=== PATIENT | female | born 1965 | race Caucasian/White ===

== ENCOUNTER 2019-01-22 08:51 | Inpatient (IN) | payer SELFPAY ==
[2019-01-22] MEDS ORDERED: Ondansetron PF 4 MG/2 ML Vial ONE ×2 (09:19→10:07)
[2019-01-22 09:30] LABS: #Basophils 0.1 thou/uL (0.0-0.2); #Eosinphils 0.1 thou/uL (0.0-0.7); #Lymphocytes 1.6 thou/uL (1.20-3.40); #Monocytes 0.7 thou/uL (0.11-0.59); #Neutrophils 4.2 thou/uL (1.40-6.50); %Eosinophils 2.2 % (0.0-10.0); %Lymphocytes 24.1 % (21.0-51.0); %Monocytes 9.8 % (0.0-10.0); %Neutrophils 62.8 % (42.0-75.0); Hemoglobin 13.4 g/dL (12.0-16.0); Mean Corpuscular HGB CONC 33.8 g/dL (32.0-36.0); Mean Corpuscular Hemoglobin 30.7 pg (27.0-31.0); Mean Corpuscular Volume 90.9 fL (78.0-98.0); Mean Platelet Volume 7.4 fL (7.4-10.4); Platelet Count 370 thou/uL (130-400); RBC Distribution Width 12.1 % (11.5-14.5); Red Blood Cell (RBC) Count 4.36 mill/uL (4.20-5.40); White Blood Cell (WBC) Count 6.7 thou/uL (4.8-10.8)
[2019-01-22 09:43] LABS: ALT (SGPT) 15 U/L (8-55); AST (SGOT) 17 U/L (5-34); Albumin 4.7 g/dL (3.5-5.0); Alkaline Phosphatase 95 U/L (40-110); Anion Gap 17 mmol/L (10-20); BUN (Urea Nitrogen) 14 mg/dL (9.8-20.1); Bilirubin, Total 1.5 mg/dL (0.2-1.2); Calc. Creatinine Clearance 0 mL/min (70-130); Calcium 9.1 mg/dL (7.8-10.44); Carbon Dioxide 21 mmol/L (22-29); Chloride 103 mmol/L (98-107); Estimated GFR-MDRD 82; Globulin 3.2 g/dL (2.4-3.5); Glucose 107 mg/dL (70-105); Lipase 19 U/L (8-78); Potassium 3.7 mmol/L (3.5-5.1); Protein, Total 7.9 g/dL (6.0-8.3); Sodium 137 mmol/L (136-145)
[2019-01-22] MEDS ORDERED: Morphine 4 MG/ML VIAL ONE ×2 (10:20→12:14)
--- NOTE | 2019-01-22 10:35 | CT ---
CT ABDOMEN AND PELVIS WITH IV CONTRAST: INDICATIONS: Abdominal pain with nausea and vomiting. COMPARISON: No comparison studies. TECHNIQUE: Axial tomograms obtained with multiplanar reconstruction. FINDINGS: Images through the lung bases reveal a cystic mass at the right cardiophrenic angle, in the medial ri ght lung base, measuring approximately 6 cm in AP dimension. Findings may represent a pericardial cys t. The lung bills are otherwise clear. The liver, spleen and pancreas appear unremarkable. There is a small pancreatic tail, apparently moreno enital. There is no history of surgical excision. The adrenal glands are normal. Both kidneys show numerous (too numerous to count) small, low density lesions throughout both kidneys . These lesions are predominantly subcentimeter. Some of the larger ones measure up to 1 cm. They pre sumably represent numerous small renal cysts. The coronal images show evidence of a 2 mm calculus in the lower pole collecting structures of the right kidney. No hydronephrosis. No evidence of urinary t ract calculus. The urinary bladder is minimally distended and unremarkable as visualized. The ureters are of normal caliber. The small bowel loops are of normal caliber. The colon is unremarkable with prominent stool in the ri ght and transverse colon. The aorta is of normal caliber. No mass or adenopathy. No free fluid. The gallbladder is mildly distended. There is no pericholecystic edema. Gallstones may not be apparen t on CT. IMPRESSION: 1. The kidneys have an abnormal appearance with numerous small low density lesions seen throughout yodit th kidneys, most likely representing numerous small renal cysts. Several of these lesions are somewha t heterogeneous and most are too small to adequately characterize. Recommend follow-up CT abdomen wit h and without contrast in six months to assess stability. 2. Coronal images show evidence of a tiny nonobstructing calculus in the lower pole collecting struct ures of the right kidney. 3. Mildly distended gallbladder of uncertain significance. Recommend clinical correlation. POS: ALEX
[2019-01-22 10:57] LABS: Bacteria/HPF None Seen HPF (None Seen); Bilirubin Negative (Negative); Blood, Urine Negative (Negative); Clarity Clear (Clear); Glucose, Urine (Dipstick) Normal (Negative); Leukocyte Negative Leu/uL (Negative); Nitrite Negative (Negative); Protein, Urine (Dipstick) 30 mg/dL (Neg-Trace); RBC/HPF 0-3 HPF (0-3); Urobilinogen Normal mg/dL (Less than 2); WBC/HPF 0-3 HPF (0-3)
--- NOTE | 2019-01-22 12:13 | ULT ---
GALLBLADDER ULTRASOUND: INDICATIONS: Right upper quadrant pain. FINDINGS: The gallbladder is mildly distended. No evidence of gallstones. The common duct is upper normal in ca liber at 6 mm. The pancreatic duct is also mildly prominent. The visualized pancreas is otherwise un remarkable. The liver is enlarged, measuring up to 20 cm. No focal liver mass. The right kidney is imaged and measures 12 cm in length. There is evidence of mild right hydronephros is with prominence of the upper collecting structures. IMPRESSION: 1. The gallbladder is mildly distended however there is no evidence of gallstones. 2. There is mild prominence of the extrahepatic bile duct and the pancreatic duct. Correlation made t o CT performed today which shows no evidence of pancreatic mass lesion. CT scan also showed mild full ness of the renal collecting structures with numerous low density cystic lesions in both kidneys. Follow-up CT abdomen is recommended, as noted on the CT abdomen and pelvis study, to confirm stabilit y of the urinary tract findings. POS: ALEX
[2019-01-22] MEDS ORDERED: Ondansetron PF 4 MG/2 ML Vial IVP PRN (16:14)
[2019-01-22] MEDS ORDERED: Ondansetron ODT 4 MG TAB SL PRN (16:14)
[2019-01-22] MEDS ORDERED: Acetaminophen 325 MG TAB PO PRN (16:14)
[2019-01-22] MEDS ORDERED: Lactated Ringer's 1,000 ML IV SCH (16:15)
[2019-01-22 16:24] VITALS: BMI 28.1
[2019-01-22] MEDS ORDERED: Morphine 2 MG/ML SYRINGE SLOW IVP PRN (17:30)
[2019-01-22] MEDS ORDERED: Magnesium Citrate 300 ML BOT PO SCH (18:00)
--- NOTE | 2019-01-22 18:25 | PDOC.HHP ---
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 On Sunday and Sunday she started feeling nauseous and then had severe RUQ pain and started to vomit. Her pain was intermittent, nothing made it better, and it was exacerbated by eating. Her pain was nonradiating. She ate egg noodle soup on Sunday and thought she had the flu or food poisoning so she stayed at home to see if it would resolve. However her abdominal pain and vomiting started to progressively get worst so she came to the ER. The patient stated the vomit was the same color as her food and then it turned bilious in color. She denied any diarrhea. She denies history of travel. She reports feeling hot and cold and had diffuse muscle aches. The patient states she hasn' t had a bowel movement since because she can't keep anything down. ED Course: The patient had US abdomen that showed distended gallbladder with no stones but mild prominence of extrahepatic bile duct and pancreatic duct. CT abdomen showed renal cysts and nonobstructing calculus in right kidney. Hospitalist ROS - Review of Systems Eyes: denies: pain, vision change ENT: denies: other (had ear discharge from vomiting) Respiratory: denies: other (had runny nose for few days) Cardiovascular: denies: chest pain, palpitations Gastrointestinal: reports: nausea, vomiting, abdominal pain, constipation Musculoskeletal: denies: neck pain, shoulder pain Neurological: denies: weakness, numbness - Medication Medications: Active Medications Generic Name Dose Route Start Last Admin Trade Name Sánchez PRN Reason Stop Dose Admin Lactated Ringer's 1,000 mls @ 125 mls/hr 01/22/19 16:15 01/22/19 16:59 Lactated Ringer's IV 01/22/19 23:59 1,000 mls .Q8H JEANETTE Administration Magnesium Citrate 300 ml 01/22/19 18:00 01/22/19 18:00 Citrate Of Magnesia 300 Ml Bot PO 01/22/19 20:00 300 ml NOW JEANETTE Administration Hospitalist History - Past Medical History Cardiac: reports: HTN - Past Surgical History Past Surgical History: reports: Appendectomy. denies: Tonsillectomy Other Surgical History: Titanium vashti left arm Knee surgery right knee Hysterectomy - Family History Family History: reports: hypertension - Social History Smoking Status: Former smoker (smoked for one year during her divorce) Alcohol: reports: Occassional Living Situation: Alone Activity level: independent ambulation - Exam General Appearance: NAD, awake alert General - other findings: appears very restless and fidgety Eye: PERRL, anicteric sclera ENT: normocephalic atraumatic, no oropharyngeal lesions Neck: supple, symmetric, no JVD Heart: RRR, no murmur, no gallops, no rubs Respiratory: CTAB, no wheezes, no rales, no ronchi Gastrointestinal: soft. negative: no guarding, no rigidity Gastrointestinal - other findings: RUQ tenderness Extremities: negative: no cyanosis, no clubbing, no edema Skin: normal turgor, no rashes. negative: no lesions Neurological: cranial nerve grossly intact, normal sensation to touch, no focal deficits, no new deficit Musculoskeletal: normal tone, normal strength, no muscle wasting Psychiatric: normal affect, normal behavior, A&O x 3 Hospitalist Results - Labs Result Diagrams: 01/22/19 09:16 01/22/19 09:16 Lab results: WBC 6.7 thou/uL (4.8-10.8) 01/22/19 09:16 Hgb 13.4 g/dL (12.0-16.0) 01/22/19 09:16 Hct 39.6 % (36.0-47.0) 01/22/19 09:16 MCV 90.9 fL (78.0-98.0) 01/22/19 09:16 Plt Count 370 thou/uL (130-400) 01/22/19 09:16 Neutrophils % 62.8 % (42.0-75.0) 01/22/19 09:16 Sodium 137 mmol/L (136-145) 01/22/19 09:16 Potassium 3.7 mmol/L (3.5-5.1) 01/22/19 09:16 Chloride 103 mmol/L (98-107) 01/22/19 09:16 Carbon Dioxide 21 mmol/L (22-29) L 01/22/19 09:16 BUN 14 mg/dL (9.8-20.1) 01/22/19 09:16 Creatinine 0.74 mg/dL (0.6-1.1) 01/22/19 09:16 Glucose 107 mg/dL (70-105) H 01/22/19 09:16 Lactic Acid 1.5 mmol/L (0.5-2.2) 01/22/19 09:28 Calcium 9.1 mg/dL (7.8-10.44) 01/22/19 09:16 Total Bilirubin 1.5 mg/dL (0.2-1.2) H 01/22/19 09:16 AST 17 U/L (5-34) 01/22/19 09:16 ALT 15 U/L (8-55) 01/22/19 09:16 Alkaline Phosphatase 95 U/L (40-110) 01/22/19 09:16 Serum Total Protein 7.9 g/dL (6.0-8.3) 01/22/19 09:16 Albumin 4.7 g/dL (3.5-5.0) 01/22/19 09:16 Lipase 19 U/L (8-78) 01/22/19 09:16 Urine Ketones Negative mg/dL (Negative) 01/22/19 10:30 Urine Blood Negative (Negative) 01/22/19 10:30 Urine Nitrite Negative (Negative) 01/22/19 10:30 Ur Leukocyte Esterase Negative Jose/uL (Negative) 01/22/19 10:30 Urine RBC 0-3 HPF (0-3) 01/22/19 10:30 Urine WBC 0-3 HPF (0-3) 01/22/19 10:30 Ur Squamous Epith Cells 4-6 HPF (0-3) A 01/22/19 10:30 Urine Bacteria None Seen HPF (None Seen) 01/22/19 10:30 Hospitalist H&P A/P - Plan Plan: CT abdomen: numerous kidney cysts. Nonobstructing calculus in right kidney. Mildly distended gallbladder RUQ Ultrasound: gallbladder mildly distended however no gallstones, mild prominence of extra hepatic bile ducts and pancreatic ducts This is a 53 year old female with past medical history of amphetamine use, hypertension who presented to ER with progressive abdominal pain, vomiting and found to have elevated bilirubin and distended gallbladder, admitted for further workup RUQ pain - possibly biliary versus constipation vs withdrawal - RUQ ultrasound showed mildly distended gallbladder, mild prominence of extra hepatic bile ducts - LFTS normal, bilirubin slightly elevated. Per GI, hold off on MRCP for now since unlikely to have biliary pathology with normal LFTS - treat for constipation with miralax for now - lipase normal - hepatitis panel, HIV ordered and pending Hypertension - hold medications Amphetamine use - patient reports use a month ago, will check utox Restlessness - appears to be withdrawing from something, however patient states last alcohol use was and she doesn't drink on a regular basis - will check utox and serum alcohol level Code status: full code DVT prophylaxis: ambulation
[2019-01-22 19:18] LABS: HBSAB Concentration 1.88 mIU/mL; HBSAg Index 0.16 S/CO (0-0.99); HIV (1/2) Antibody/Antigen Non-Reactive (NonReactive); HIV 1/2 INDEX 0.08 S/CO (<1.00); Hep B Surf AB Non-Reactive (NonReactive); Hep B Surf Ag Non-Reactive S/CO (NonReactive); Hep C IgG Ab Non-Reactive (NonReactive); Hep C Index 0.06 S/CO (0-0.79)
--- NOTE | 2019-01-22 19:27 | CON ---
DATE OF CONSULTATION: 01/22/2019 CHIEF COMPLAINT: Abdominal pain. HISTORY OF PRESENT ILLNESS: Ms. Cordero is a 53-year-old woman who developed nausea and vomiting and right upper quadrant abdominal pain starting about 5 days ago. She complains of a severe aching right upper quadrant pain that does not radiate and lasts for hours at a time. The pain worsens after eating, but improves with passing flatus. She has had some problems with constipation over the last year. She has a bowel movement every couple of days and has small incomplete stools and bowel movements. She has had no blood in the stool. She does have to strain at bowel movements. She was admitted to [facility] a month ago after being attacked by a dog, and she had to have surgery on her knee to wash out the wound and staple it. She did receive some pain medicines while in the hospital, has not been on chronic pain medicine since then. She has never had a colonoscopy. Her weight has been stable. She has not been having problems with abdominal pain prior to this. She has had no chest pain or shortness of breath. PAST MEDICAL HISTORY: Hypertension. She states that she was started on 2 different blood pressure medications when she was in the hospital with her dog bite last month. PAST SURGICAL HISTORY: Total hysterectomy, arm surgery, appendectomy, and tonsillectomy. FAMILY HISTORY: Negative for GI malignancy. Her grandmother had some type of unknown cancer. HABITS: She has smoked a half a pack a week over the last year after divorce, but has not been smoking over the last month. She uses methamphetamines, but has not injected them. Her last methamphetamine use was 45 days ago. She had a divorce around a year ago and drink a large amount of vodka that in the past shortly after that, but more recently she drinks a couple of shots of vodka and maybe another glass of wine a couple of times per month. ALLERGIES: PENICILLIN. MEDICATIONS: At home, amlodipine and another blood pressure medicine which she cannot recall the name at this time. REVIEW OF SYSTEMS: Negative x10 systems reviewed except as stated in History of Present Illness. PHYSICAL EXAMINATION: VITAL SIGNS: Temperature 98.4, pulse 84, and blood pressure 158/82. GENERAL: She is in no acute distress. Alert and oriented x3. HEENT: Eyes have no scleral icterus. Oropharynx is clear without lesions. NECK: No cervical or supraclavicular lymphadenopathy. LUNGS: Clear to auscultation bilaterally. HEART: Regular rate and rhythm without murmur. ABDOMEN: Soft. She is tender in the epigastric to right upper quadrant region without guarding. Her bowel sounds are present. EXTREMITIES: No lower extremity edema. NEUROLOGIC: Cranial nerves are grossly intact. LABORATORY DATA: White blood cell count 6.7, hemoglobin 13.4, and platelets 370. Creatinine 0.74, bilirubin 1.5, AST 17, ALT 15, alkaline phosphatase 95, albumin 4.7, and lipase 19. IMPRESSION: 1. Right upper quadrant abdominal pain. This seems to correlate most with constipation. She has prominent stool in the ascending and transverse colon by CT scan. When she passes flatus, her pain improves. She has been having progressive constipation over the last year, but this may worsen with her recent hospitalization last month after the dog bite and pain medicine with that. She also has had nausea and vomiting and could have had an infectious gastroenteritis that started this acute episode. She has had no weight loss or blood in the stool or diarrhea. She has never had a colonoscopy. 2. CT scan showed a prominent size gallbladder, but no stones or inflammatory changes by CT or ultrasound. Her common bile duct was normal at 6 mm. Her liver tests are normal. There is no evidence of choledocholithiasis. Her bilirubin is mildly elevated, isolated, which could be related to Gilbert's. We will plan to follow the trend of the liver tests. I will cancel MRCP for now. However, if her liver tests start increasing, then we can reorder the MRCP. If her abdominal pain does not improve with laxatives, then next step would be a HIDA scan with ejection fraction rather than MRI. 3. Given her history of amphetamine use, I will check a viral hepatitis C and B screen. RECOMMENDATIONS: 1. Magnesium citrate this evening. If we fail to get adequate output without them, we can try GoLYTELY, but given the recent nausea and vomiting, I will start with magnesium citrate. 2. Follow trend of her liver tests tomorrow morning. If she has a significant jump in the transaminases and bilirubin tomorrow, then consider MRCP, but we will cancel this for now. 3. If the right upper quadrant pain persists despite treatment of the constipation, then consider HIDA scan. 4. She was advised to follow up in the office for colon cancer screening with colonoscopy after this hospitalization. Job ID: [id number]
[2019-01-22] MEDS: Polyethylene Glycol 3350 17 GM Packet PO SCH (20:02)
[2019-01-22 21:24] LABS: Amphetamine Not Detected (NotDetected); Barbiturates Screen Not Detected (NotDetected); Benzodiazepine Screen Not Detected (NotDetected); Cocaine Metabolite Screen Not Detected (NotDetected); Medtox Reader # READER 4; Methadone Not Detected (NotDetected); Methamphetamine Not Detected (NotDetected); Opiate Screen Detected (NotDetected); Phencyclidine (PCP) Not Detected (NotDetected); THC/Cannabinoid Screen Not Detected (NotDetected); Tricyclic Screen Not Detected (NotDetected)
[2019-01-22 21:25] LABS: Medtox Control Line Valid? VALID (VALID); Oxycodone Screen Not Detected (NotDetected)
[2019-01-22] MEDS: Ketorolac Tromethamine 30 MG/ML VIAL IVP PRN (22:42)
[2019-01-23] MEDS: Ketorolac Tromethamine 30 MG/ML VIAL IVP PRN ×3 (04:07→17:28)
[2019-01-23 06:41] LABS: Hemoglobin 11.9 g/dL (12.0-16.0); Mean Corpuscular HGB CONC 34.1 g/dL (32.0-36.0); Mean Corpuscular Hemoglobin 31.6 pg (27.0-31.0); Mean Corpuscular Volume 92.6 fL (78.0-98.0); Mean Platelet Volume 7.1 fL (7.4-10.4); Platelet Count 309 thou/uL (130-400); RBC Distribution Width 12.1 % (11.5-14.5); Red Blood Cell (RBC) Count 3.76 mill/uL (4.20-5.40); White Blood Cell (WBC) Count 5.8 thou/uL (4.8-10.8)
[2019-01-23 07:06] LABS: ALT (SGPT) 13 U/L (8-55); AST (SGOT) 16 U/L (5-34); Alkaline Phosphatase 78 U/L (40-110); Anion Gap 12 mmol/L (10-20); BUN (Urea Nitrogen) 14 mg/dL (9.8-20.1); Calc. Creatinine Clearance 113 mL/min (70-130); Calcium 8.9 mg/dL (7.8-10.44); Carbon Dioxide 22 mmol/L (22-29); Chloride 106 mmol/L (98-107); Estimated GFR-MDRD 81; Globulin 2.7 g/dL (2.4-3.5); Glucose 93 mg/dL (70-105); Potassium 3.6 mmol/L (3.5-5.1); Protein, Total 6.7 g/dL (6.0-8.3); Sodium 136 mmol/L (136-145)
[2019-01-23 07:55] LABS: Band 1 % (5-11); Eosinophils 6 % (0-10); Lymphocytes 22 % (21-51); MDiff Complete? YES; Monocytes 7 % (0-10); Neutrophil 63 % (42-75); RBC Morphology Normal; Reactive Lymphocytes 1 % (0-10)
[2019-01-23] MEDS ORDERED: FLU VACC QS2019-20(6MOS UP)/PF 60 MCG/0.5 ML SYRINGE IM ONE (09:00)
[2019-01-23] MEDS: Polyethylene Glycol 3350 17 GM Packet PO SCH (09:10)
[2019-01-23] MEDS ORDERED: Amlodipine 5 MG TAB PO SCH (18:45)
[2019-01-23] MEDS ORDERED: Labetalol 100 MG TAB PO SCH (19:15)
--- NOTE | 2019-01-23 19:27 | PDOC.HOSPP ---
- Subjective Encounter Date: 01/23/19 Encounter Time: 19:26 Subjective: The patient is feeling better. Reports having excessive diarrhea from getting too much miralax. States that she tolerated diet with less cramps, wants to eat food. Reportedly tolerated a low fat diet. Wanted to be discharged but no ride home. BP elevated, patient was found to be taking amlodipine and labetalol at home. - Objective Vital Signs & Weight: Vital Signs (12 hours) Temp Pulse Resp BP Pulse Ox 01/23/19 16:00 99.0 F 86 20 164/94 H 91 L 01/23/19 11:19 98.1 F 81 18 172/94 H 95 01/23/19 07:52 98.3 F 70 18 141/68 H 92 L Weight Admit Weight 180 lb 0.119 oz Weight 180 lb 0.119 oz I&O: 01/22/19 01/23/19 01/24/19 06:59 06:59 06:59 Intake Total 2200 Balance 2200 Result Diagrams: 01/23/19 06:22 01/23/19 06:22 Hospitalist ROS - Review of Systems Constitutional: denies: chills, sweats - Medication Medications: Active Medications Generic Name Dose Route Start Last Admin Trade Name Freq PRN Reason Stop Dose Admin Amlodipine Besylate 5 mg 01/23/19 18:45 01/23/19 18:55 Norvasc PO 01/23/19 20:45 5 mg NOW JEANETTE Administration Ketorolac Tromethamine 15 mg 01/22/19 19:24 01/23/19 17:28 Toradol IVP 01/27/19 19:25 15 mg Q6H PRN Administration Pain Sodium Chloride 10 ml 01/22/19 19:28 01/23/19 09:09 Flush - Normal Saline IVF 10 ml PRN PRN Administration Saline Flush - Exam General Appearance: NAD, awake alert Eye: PERRL, anicteric sclera ENT: normocephalic atraumatic, no oropharyngeal lesions Neck: supple, no JVD Heart: RRR, no murmur, no gallops, no rubs Respiratory: CTAB, no wheezes, no rales, no ronchi Gastrointestinal: soft, non-tender, non-distended Extremities: no cyanosis, no clubbing, no edema Skin: normal turgor, no lesions, no rashes Neurological: cranial nerve grossly intact, normal sensation to touch, no focal deficits, no new deficit Musculoskeletal: normal tone, normal strength, no muscle wasting Psychiatric: normal affect, normal behavior, A&O x 3, oriented to person Hosp A/P - Plan CT abdomen: numerous kidney cysts. Nonobstructing calculus in right kidney. Mildly distended gallbladder RUQ Ultrasound: gallbladder mildly distended however no gallstones, mild prominence of extra hepatic bile ducts and pancreatic ducts This is a 53 year old female with past medical history of amphetamine use, hypertension who presented to ER with progressive abdominal pain, vomiting and found to have elevated bilirubin and distended gallbladder, admitted for further workup RUQ pain - possibly constipation vs gastroenteritis #Diarrhea - RUQ ultrasound showed mildly distended gallbladder, mild prominence of extra hepatic bile ducts - LFTS normal, bilirubin slightly elevated but repeat CMP today normal - will d/c bowel meds - lipase normal, HIV, hep C normal Hypertension - resume outpatient amlodipine and labetalol Recent Amphetamine use - utox negative Restlessness - improved. Almost looks like tardive dyskinesia but not on antipsychotoics? - utox negative except for opiate however done after patient received morphine in hospital Diet: advance to regular diet Dispo: d/c in am Code status: full code
--- NOTE | 2019-01-23 22:51 | PRG ---
DATE OF SERVICE: 01/23/2019 SUBJECTIVE: Ms. oCrdero has had marked improvement in her abdominal pain. She took the magnesium citrate and MiraLAX last night, has had multiple liquidy stools today. OBJECTIVE: VITAL SIGNS: Temperature is 99.1, pulse is 84, and blood pressure 174/90. GENERAL: She is in no acute distress. Alert and oriented x3. HEENT: Eyes have no scleral icterus. Oropharynx is clear without lesions. NECK: No cervical or supraclavicular lymphadenopathy. LUNGS: Clear to auscultation bilaterally. HEART: Regular rate and rhythm without murmur. ABDOMEN: Soft, nontender, and nondistended. Bowel sounds are present. EXTREMITIES: No lower extremity edema. IMPRESSION: Constipation. Her right upper quadrant abdominal pain is likely secondary to constipation. This is currently improved with laxatives. Her pain has resolved currently. RECOMMENDATIONS: 1. Continue MiraLAX daily. 2. Follow up in the office for screening colonoscopy. Job ID: [id number]
[2019-01-24] MEDS: Ketorolac Tromethamine 30 MG/ML VIAL IVP PRN ×2 (00:09→08:23)
[2019-01-24 05:16] LABS: Hemoglobin 11.3 g/dL (12.0-16.0); Mean Corpuscular Hemoglobin 31.8 pg (27.0-31.0); Mean Corpuscular Volume 93.6 fL (78.0-98.0); Mean Platelet Volume 7.2 fL (7.4-10.4); Platelet Count 289 thou/uL (130-400); RBC Distribution Width 12.3 % (11.5-14.5); Red Blood Cell (RBC) Count 3.55 mill/uL (4.20-5.40); White Blood Cell (WBC) Count 6.6 thou/uL (4.8-10.8)
[2019-01-24 05:25] LABS: Anion Gap 11 mmol/L (10-20); BUN (Urea Nitrogen) 20 mg/dL (9.8-20.1); Calc. Creatinine Clearance 125 mL/min (70-130); Calcium 8.4 mg/dL (7.8-10.44); Carbon Dioxide 22 mmol/L (22-29); Chloride 106 mmol/L (98-107); Estimated GFR-MDRD Greater than 90; Glucose 97 mg/dL (70-105); Potassium 3.7 mmol/L (3.5-5.1); Sodium 135 mmol/L (136-145)
[2019-01-24] MEDS ORDERED: Amlodipine 5 MG TAB PO SCH (09:00)
[2019-01-24] MEDS ORDERED: Labetalol 100 MG TAB PO SCH (09:00)
[2019-01-24 10:13] LABS: ALT (SGPT) 13 U/L (8-55); AST (SGOT) 12 U/L (5-34); Albumin 3.8 g/dL (3.5-5.0); Alkaline Phosphatase 72 U/L (40-110); Bilirubin, Direct 0.2 mg/dL (0.1-0.3); Bilirubin, Total 0.6 mg/dL (0.2-1.2); Protein, Total 6.4 g/dL (6.0-8.3)
--- NOTE | 2019-01-24 11:21 | RAD ---
KUB: Date: 01/24/19 PROVIDED CLINICAL HISTORY: Constipation. FINDINGS: The abdominal bowel gas pattern is nonspecific. No radiographically apparent urinary tract calculi. T he supine nature of the examination is not sensitive for detection of pneumoperitoneum. The osseous s tructures demonstrate no acute findings. IMPRESSION: Nonspecific bowel gas pattern. POS: OFF
[2019-01-24] MEDS ORDERED: Lorazepam 0.5 MG TAB PO PRN (11:40)
[2019-01-24 13:13] VITALS: BP 160/93; TEMP 98.7
--- NOTE | 2019-01-27 12:19 | DIS ---
DATE OF ADMISSION: 01/22/2019 DATE OF DISCHARGE: 01/24/2019 ADMITTING DIAGNOSIS: Right upper quadrant pain, possibly constipation gallstone versus constipation DISCHARGE DIAGNOSES: Right upper quadrant pain, possibly secondary to gastroenteritis versus gallbladder pathology Secondary discharge diagnosis: hypertension, renal cyst, anemia, restlessness/anxiety CONSULTATIONS: Gastroenterology with Dr. Gera Franco. PROCEDURES: None. HISTORY AND HOSPITAL COURSE: This is a 53-year-old female with a past medical history of amphetamine use, hypertension who presented with right upper quadrant pain. Her pain has started on January 18 and was worsened with eating and not relieved with anything. She reported progressive pain, which persisted to bilious vomiting. She reported that she recently ate egg noodle soup on the . She had the flu due to runny nose and muscle aches but came to the ER for further workup. The patient was noted to have an elevated bilirubin of 1.5. CT abdomen showed mildly distended gallbladder and ultrasound of right upper quadrant showed mildly distended gallbladder as well. She was admitted for possible ERCP HOSPITAL COURSE: . GI was consulted. They did not feel like her pain was related to biliary obstruction due to normal LFTS, so the patient was started on laxatives. The following day, the patient reported having excessive amounts of diarrhea. Therefore, her laxatives were stopped. She continued to report right upper quadrant pain with eating therefore, abdominal x-ray was done, which showed nonspecific bowel gas pattern. GI recommended that she get a HIDA scan. The patient refused the HIDA scan. . Therefore, she was told to come back to ER if RUQ pain persists. Remote history of amphetamine use: utox negative on admission Hypertension: patient was resumed on amlodipine and labetalol Restlessness: patient was very restless with possible tardive dyskinesia however not on any antipsychotics. Utox showed opiates after receiving morphine on admission. She denied alcohol use. She requested something for anxiety however reported that starting an anxiolytic requires adequate follow up. Patient will try to find a PCP to follow up with. ANnmia: Hb 11.3 on day of discharge. This could be from phlebotomy. Patient to have this followed up as outpatient. DISCHARGE PHYSICAL EXAMINATION: Vitals signs: temp 98.7, HR 80, RR 16, 95% room air, BP 160/93 General Appearance: NAD, awake alert General - other findings: appears very restless and fidgety Eye: PERRL, anicteric sclera ENT: normocephalic atraumatic, no oropharyngeal lesions Neck: supple, symmetric, no JVD Heart: RRR, no murmur, no gallops, no rubs Respiratory: CTAB, no wheezes, no rales, no ronchi Gastrointestinal: soft. negative: no guarding, no rigidity Gastrointestinal - other findings: RUQ tenderness Extremities: negative: no cyanosis, no clubbing, no edema Skin: normal turgor, no rashes. negative: no lesions Neurological: cranial nerve grossly intact, normal sensation to touch, no focal deficits, no new deficit Musculoskeletal: normal tone, normal strength, no muscle wasting Psychiatric: normal affect, normal behavior, A&O x 3 PERTINENT LABORATORY DATA CBC 01/24/2019 : hemoglobin is . 11.3/33.3 LFTS 01/24/19 : AST 12, ALT 13, ALP 72 PERTINENT IMAGING DATA: CT abdomen without contrast : nonobstructing calculus in the lower pole of the right kidney. Numerous renal cysts. Mildly distended gallblader RUQ ultrasound: gallbladder mildly distended however no gallstones, mild prominence of extra hepatic bile ducts and pancreatic ducts Abdominal x-ray 01/24: nonspecific bowel gas pattern DISCHARGE CONDITION: The patient is hemodynamically stable. ACTIVITY: As tolerated. DIET: Regular or low-fat diet. DISCHARGE MEDICATIONS: amlodipine 5 mg p.o. daily, labetalol 200 mg tablet p.o. b.i.d. DISCHARGE INSTRUCTIONS: The patient needs a followup CT scan of her abdomen to further evaluate renal cyst in 6 months. Also start on medication for anxiety Job ID: [id number] [facility]
== END 2019-01-24 13:33 | disposition home or self-care (01) | DRG 392 ==
LOC: ERS 08:51 → ERHOLD 13:18 → T4-B 16:07
PROVIDERS: ADMIT Internal Medicine; ATTEND Internal Medicine
DX: K59.00 Constipation, unspecified (principal); I10 Essential (primary) hypertension; F41.9 Anxiety disorder, unspecified; F31.9 Bipolar disorder, unspecified; F17.210 Nicotine dependence, cigarettes, uncomplicated; Z91.14 Patient's other noncompliance with medication regimen; Z86.14 Personal history of Methicillin resistant Staphylococcus aureus infection; Z90.49 Acquired absence of other specified parts of digestive tract; Z90.710 Acquired absence of both cervix and uterus; Z88.0 Allergy status to penicillin; R45.1 Restlessness and agitation
CPT/HCPCS: 36415; 74018; 74177; 76705; 80048; 80053; 80076; 80306; 81003; 81015; 83605; 83690; 85007; 85025; 85027; 86706; 86803; 87340; 87389; 90471; 90686; 96361; 96374; 96375; 96376; G0008; J1885; J2270; J2405

== ENCOUNTER 2021-01-20 11:51 | Emergency (ER) | payer OTHER, SELFPAY ==
[2021-01-20] MEDS ORDERED: Ketorolac Tromethamine 30 MG/ML VIAL ONE (12:13)
[2021-01-20] MEDS ORDERED: PROPOFOL 20 ML ONE ×3 (13:17→16:38)
[2021-01-20] MEDS ORDERED: Lorazepam 2 MG/ML VIAL ONE (13:18)
[2021-01-20] MEDS ORDERED: Ketamine 50 MG/ML (10ML VIAL) ONE (14:53)
[2021-01-20] MEDS ORDERED: Fentanyl 100 MCG/2 ML VIAL ONE (16:42)
== END 2021-01-20 18:00 | disposition home or self-care (01) ==
LOC: ERS 11:51
DX: S43.004A Unspecified dislocation of right shoulder joint, initial encounter (principal); I10 Essential (primary) hypertension; F17.210 Nicotine dependence, cigarettes, uncomplicated; W01.0XXA Fall on same level from slipping, tripping and stumbling without subsequent striking against object, initial encounter
CPT/HCPCS: 23650; 96374; 96375; 99156; 99157; J1885; J2060; J2704; J3010

== ENCOUNTER 2021-01-23 11:02 | Emergency (ER) | payer SELFPAY ==
[2021-01-23] MEDS ORDERED: Fentanyl 100 MCG/2 ML VIAL ONE (12:03)
[2021-01-23] MEDS ORDERED: Ketamine 50 MG/ML (10ML VIAL) ONE (12:03)
== END 2021-01-23 14:14 | disposition home or self-care (01) ==
LOC: ERS 11:02
DX: S43.014A Anterior dislocation of right humerus, initial encounter (principal); I10 Essential (primary) hypertension; E78.00 Pure hypercholesterolemia, unspecified; F17.210 Nicotine dependence, cigarettes, uncomplicated; Z79.899 Other long term (current) drug therapy; X50.9XXA Other and unspecified overexertion or strenuous movements or postures, initial encounter
CPT/HCPCS: 23650; 96374; 99152; 99153; J3010

== ENCOUNTER 2022-07-20 08:01 | Emergency (ER) | payer OTHER, SELFPAY ==
[2022-07-20] MEDS ORDERED: Dicyclomine 20 MG TAB ONE (09:21)
[2022-07-20] MEDS ORDERED: Ondansetron PF 4 MG/2 ML Vial ONE (09:21)
[2022-07-20 09:57] LABS: #Eosinphils 0.1 thou/uL (0.0-0.7); #Monocytes 0.3 thou/uL (0.11-0.59); #Neutrophils 3.2 thou/uL (1.40-6.50); %Basophils 0.4 % (0.0-1.0); %Eosinophils 2.3 % (0.0-10.0); %Lymphocytes 21.5 % (21.0-51.0); %Monocytes 6.8 % (0.0-10.0); Hemoglobin 12.2 g/dL (12.0-16.0); Mean Corpuscular HGB CONC 32.8 g/dL (32.0-36.0); Mean Corpuscular Hemoglobin 30.1 pg (27.0-31.0); Mean Corpuscular Volume 91.8 fl (78.0-98.0); Mean Platelet Volume 7.8 fL (7.4-10.4); Platelet Count 288 10x3/uL (130-400); RBC Distribution Width 11.7 % (11.5-14.5); Red Blood Cell (RBC) Count 4.06 mill/uL (4.20-5.40); White Blood Cell (WBC) Count 4.6 10x3/uL (4.8-10.8)
[2022-07-20 10:18] LABS: ALT (SGPT) 37 U/L (8-55); AST (SGOT) 29 U/L (5-34); Albumin 4.1 g/dL (3.5-5.0); Alkaline Phosphatase 74 U/L (40-110); Anion Gap 13 mmol/L (10-20); BUN (Urea Nitrogen) 14 mg/dL (9.8-20.1); Bilirubin, Total 0.4 mg/dL (0.2-1.2); Calc. Creatinine Clearance 0 mL/min (70-130); Calcium 8.8 mg/dL (7.8-10.44); Carbon Dioxide 21 mmol/L (22-29); Chloride 109 mmol/L (98-107); Estimated GFR 102; Globulin 2.8 g/dL (2.4-3.5); Glucose 100 mg/dL (70-105); Lipase 150 U/L (8-78); Potassium 3.3 mmol/L (3.5-5.1); Protein, Total 6.9 g/dL (6.0-8.3); Sodium 140 mmol/L (136-145)
[2022-07-20 11:02] LABS: Bacteria/HPF None Seen HPF (None Seen); Bilirubin Negative (Negative); Blood, Urine Negative (Negative); Clarity Clear (Clear); Glucose, Urine (Dipstick) Normal (Negative); Ketone, Urine Negative (Negative); Leukocyte 250 Leu/uL (Negative); Nitrite Negative (Negative); Protein, Urine (Dipstick) 20 mg/dL (Neg-Trace); Squamous Epithelial 21-50 HPF (0-3); Urobilinogen Normal mg/dL (Less than 2); WBC/HPF 0-3 HPF (0-3); pH, Urine 6.5 (5.0-9.0)
[2022-07-20 11:04] LABS: Specific Gravity, Urine 1.045 (1.002-1.036)
[2022-07-20] MEDS ORDERED: Iopamidol-370 76% 500 ML MDV (1 ML CHARGE) ONE (15:28)
== END 2022-07-20 11:52 | disposition home or self-care (01) ==
LOC: ERS 08:01
DX: R19.7 Diarrhea, unspecified (principal); R11.2 Nausea with vomiting, unspecified; D72.819 Decreased white blood cell count, unspecified; I10 Essential (primary) hypertension; Z87.891 Personal history of nicotine dependence
CPT/HCPCS: 74177; 80053; 81003; 81015; 83690; 85025; 93005; 96361; 96374; J2405; Q9967